=== PATIENT | female | born 1975 | race Two or more races ===

== ENCOUNTER 2017-12-12 18:15 | Emergency (ER) | payer BC ==
[2017-12-12 19:03] LABS: ADD MAN DIFF? NO
[2017-12-12 19:06] LABS: BASO # 0.1 x10^3/uL (0.0-0.2); BASO % 1 % (0-3); EOS # 0.3 x10^3/uL (0.0-0.7); EOS % 5 % (0-3); HEMATOCRIT 35.6 % (36.0-47.0); HEMOGLOBIN 12.1 g/dL (12.0-15.5); LYMPH # 1.4 x10^3/uL (1.0-4.8); LYMPH % 23 % (24-48); MEAN CORPUSCULAR HEMOGLOBIN 28 pg (25-35); MEAN CORPUSCULAR HGB CONC 34 g/dL (31-37); MEAN CORPUSCULAR VOLUME 81 fL (79-100); MONO # 0.5 x10^3/uL (0.0-1.1); MONO % 8 % (0-9); NEUT # 3.9 x10^3uL (1.8-7.7); NEUT % 63 % (31-73); PLATELET COUNT 300 x10^3/uL (140-400); RED CELL DISTRIBUTION WIDTH 13.8 % (11.5-14.5); WHITE BLOOD COUNT 6.1 x10^3/uL (4.0-11.0)
[2017-12-12 19:16] LABS: ANION GAP 7 (6-14); BLOOD UREA NITROGEN 10 mg/dL (7-20); BUN/CREATININE RATIO 14 (6-20); CALCIUM 8.7 mg/dL (8.5-10.1); CARBON DIOXIDE 31 mmol/L (21-32); CHLORIDE 103 mmol/L (98-107); CREATININE 0.7 mg/dL (0.6-1.0); GFR 92.7; GLUCOSE 120 mg/dL (70-99); POTASSIUM 3.3 mmol/L (3.5-5.1); SODIUM 141 mmol/L (136-145)
[2017-12-12 19:22] LABS: ALBUMIN 3.3 g/dL (3.4-5.0); ALBUMIN/GLOBULIN RATIO 1.1 (1.0-1.7); ALT (SGPT) 85 U/L (14-59); AST (SGOT) 269 U/L (15-37); CREATINE KINASE 78 U/L (26-192); LIPASE 259 U/L (73-393); TOTAL PROTEIN 6.3 g/dL (6.4-8.2)
[2017-12-12 19:26] LABS: TROPONINI < 0.017 ng/mL (0.000-0.055)
[2017-12-12 19:29] LABS: CKMB INDEX 1.4 % (0-4); CKMB MASS 1.1 ng/mL (0.0-3.6); CREATINE KINASE 79 U/L (26-192)
[2017-12-12 19:37] LABS: ALK PHOS 104 U/L (46-116); TOTAL BILIRUBIN 0.3 mg/dL (0.2-1.0)
[2017-12-12 19:44] LABS: BILIRUBIN,URINE NEGATIVE (NEG); CLARITY,URINE CLEAR; COLOR,URINE YELLOW; GLUCOSE,URINE NEGATIVE (NEG); NITRITE,URINE NEGATIVE (NEG); PH,URINE 7.5; PROTEIN,URINE NEGATIVE (NEG-TRACE); UROBILINOGEN,URINE 0.2 mg/dL (0.2 mg/dL)
[2017-12-12 19:57] LABS: RBC,URINE 0 /HPF (0-2)
[2017-12-12 19:58] LABS: BACTERIA,URINE FEW /HPF (0-FEW); SQUAMOUS EPITHELIAL CELL,UR MOD /LPF
[2017-12-12 20:37] LABS: NT-PRO BNP 106 pg/mL (0-124)
[2017-12-12] MEDS: KETOROLAC 30 MG/ML INJ. IV (20:55)
[2017-12-12] MEDS: POTASSIUM CHLORIDE 20 MEQ TABLET.ER. PO (20:55)
== END 2017-12-12 22:08 | disposition home or self-care (01) ==
LOC: ER 18:15
DX: R10.13 Epigastric pain (principal); R11.0 Nausea; R74.8 Abnormal levels of other serum enzymes; E87.6 Hypokalemia; M79.89 Other specified soft tissue disorders; Z98.51 Tubal ligation status
CPT/HCPCS: 36415; 71045; 76700; 80053; 81001; 82550; 82553; 83690; 83880; 84484; 85025; 93005; 96374; 99285-25; J1885

== ENCOUNTER 2020-08-20 14:48 | Emergency (ER) | payer BC, OTHER ==
[~2020-08-20] VITALS: Ht 147.3 cm; Wt 63.6 kg
[~2020-08-20 14:48] MED LIST: HYDR25TA PO
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
[2020-08-20] MEDS ORDERED: IOHEXOL 300 MG/ML 100ML VIAL. IV ONE (15:15)
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
[2020-08-20 15:41] LABS: BASO # 0.1 x10^3/uL (0.0-0.2); BASO % 1 % (0-3); EOS # 0.3 x10^3/uL (0.0-0.7); EOS % 4 % (0-3); HEMOGLOBIN 12.9 g/dL (12.0-15.5); LYMPH # 2.3 x10^3/uL (1.0-4.8); LYMPH % 30 % (24-48); MEAN CORPUSCULAR HEMOGLOBIN 28 pg (25-35); MEAN CORPUSCULAR HGB CONC 34 g/dL (31-37); MEAN CORPUSCULAR VOLUME 82 fL (79-100); MONO # 0.5 x10^3/uL (0.0-1.1); MONO % 7 % (0-9); NEUT # 4.5 x10^3/uL (1.8-7.7); NEUT % 59 % (31-73); PLATELET COUNT 260 x10^3/uL (140-400); RED BLOOD COUNT 4.61 x10^6/uL (3.50-5.40); RED CELL DISTRIBUTION WIDTH 13.7 % (11.5-14.5); WHITE BLOOD COUNT 7.6 x10^3/uL (4.0-11.0)
[2020-08-20 15:58] LABS: CALCIUM 8.6 mg/dL (8.5-10.1); CREATININE 0.7 mg/dL (0.6-1.0); GFR 91.8; POTASSIUM 4.1 mmol/L (3.5-5.1)
[2020-08-20 16:02] LABS: ALBUMIN 3.6 g/dL (3.4-5.0); TOTAL BILIRUBIN 0.4 mg/dL (0.2-1.0); TOTAL PROTEIN 7.1 g/dL (6.4-8.2)
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
[2020-08-20 16:50] VITALS: BP 115/72
[2020-08-20] MEDS ORDERED: HYDR-2761 PO (17:14)
== END 2020-08-20 17:27 | disposition home or self-care (01) ==
LOC: ER 14:48
DX: R07.2 Precordial pain (principal); R10.13 Epigastric pain; M54.2 Cervicalgia; M79.671 Pain in right foot; G89.11 Acute pain due to trauma; Z98.51 Tubal ligation status; V47.6XXA Car passenger injured in collision with fixed or stationary object in traffic accident, initial encounter; Y92.488 Other paved roadways as the place of occurrence of the external cause; Y93.89 Activity, other specified; Y99.8 Other external cause status
CPT/HCPCS: 36415; 71260; 72040; 73630; 74177; 80053; 84702; 85025; 99285; Q9967